=== PATIENT | male | born 1975 | race Caucasian/White ===

== ENCOUNTER 2018-11-09 20:06 | Emergency (ER) | payer BC, OTHER ==
[2018-11-09 20:18] VITALS: BP 150/90
--- NOTE | 2018-11-09 21:27 | UC ---
Throat Pain/Nasal Isidro HPI - HPI Summary HPI Summary: onset of fever on 11/05, with sore throat and voice hoarseness, harsh cough and chills. No headache, nausea, vomiting, shortness of breath. He has been using ibuprofen and continued working. Today, his voice is hoarse. - History of Current Complaint Chief Complaint: UCGeneralIllness Stated Complaint: COUGH THROAT Time Seen by Provider: 11/09/18 21:17 Hx Obtained From: Patient Onset/Duration: Gradual Onset, Lasting Days Severity: Moderate Pain Intensity: 0 Cough: Nonproductive Associated Signs & Symptoms: Positive: Hoarseness, Fever - Allergies/Home Medications Allergies/Adverse Reactions: Allergies Allergy/AdvReac Type Severity Reaction Status Date / Time No Known Allergies Allergy Verified 09/11/18 18:55 Home Medications: Home Medications Acetaminophen [Tylenol] 650 mg PO Q6H 11/09/18 [History Confirmed 11/09/18] Ibuprofen 400 mg PO ONCE 11/09/18 [History Confirmed 11/09/18] guaiFENesin [Guaifenesin] 1 each PO DAILY 11/09/18 [History Confirmed 11/09/18] PMH/Surg Hx/FS Hx/Imm Hx Previously Healthy: Yes - Surgical History Surgical History: Yes Surgery Procedure, Year, and Place: vasectomy - Family History Known Family History: Positive: Non-Contributory - Social History Occupation: Employed Full-time Lives: With Family Alcohol Use: Occasionally Substance Use Type: None Smoking Status (MU): Former Smoker When Did the Patient Quit Smoking/Using Tobacco: 2002 - Immunization History Most Recent Tetanus Shot: 1999 Review of Systems All Other Systems Reviewed And Are Negative: Yes Constitutional: Positive: Fever, Fatigue Skin: Positive: Negative Eyes: Positive: Negative ENT: Positive: Sore Throat Respiratory: Positive: Cough Cardiovascular: Negative: Palpitations, Chest Pain Gastrointestinal: Negative: Vomiting, Diarrhea, Nausea Genitourinary: Positive: Negative Motor: Positive: Negative Neurovascular: Positive: Negative Musculoskeletal: Positive: Myalgia Neurological: Positive: Negative. Negative: Headache Psychological: Positive: Negative Is Patient Immunocompromised?: No Physical Exam Triage Information Reviewed: Yes Appearance: Ill-Appearing - looks mildly unwell Vital Signs: Initial Vital Signs Temp 100.5 F 11/09/18 20:15 Pulse 92 11/09/18 20:15 Resp 17 11/09/18 20:15 BP 150/90 11/09/18 20:15 Pulse Ox 99 11/09/18 20:15 Eyes: Positive: Conjunctiva Clear ENT: Positive: Pharyngeal erythema - posterior drainage, tonsils normal, TMs normal Dental Exam: Normal Neck: Positive: Nontender, No Lymphadenopathy Respiratory: Positive: Lungs clear, Normal breath sounds, No respiratory distress Cardiovascular: Positive: RRR, No Murmur Musculoskeletal Exam: Normal Neurological Exam: Normal Neurological: Positive: Alert, Muscle Tone Normal Psychological Exam: Normal Skin Exam: Normal Throat Pain/Nasal Course/Dx - Course Course Of Treatment: continue symptomatic treatment of influenza like illness. - Differential Dx/Diagnosis Provider Diagnosis: Influenza-like illness Discharge - Sign-Out/Discharge Documenting (check all that apply): Patient Departure All imaging exams completed and their final reports reviewed: No Studies - Discharge Plan Condition: Stable Disposition: HOME Patient Education Materials: Viral Syndrome (ED) Referrals: No Primary Care Phys,NOPCP [Primary Care Provider] - Additional Instructions: Continue ibupofen and high intake of fluids. I would expect your fever to be gone by 11/11, wth gradual improvement. Return for assessment if you have persistent fever, shortness of breath, chest pain, or have nausea and vomiting. - Billing Disposition and Condition Condition: STABLE Disposition: Home
== END 2018-11-09 21:55 | disposition home or self-care (01) ==
LOC: UCCORT 20:06
DX: J11.1 Influenza due to unidentified influenza virus with other respiratory manifestations (principal); Z87.891 Personal history of nicotine dependence
CPT/HCPCS: 99211; G0463